=== PATIENT | female | born 2000 | race Hispanic/Latino ===

== ENCOUNTER 2025-06-28 21:31 | Emergency (ER) | payer OTHER, SELFPAY ==
[2025-06-28] MEDS ORDERED: Dexamethasone 10 MG/ML VIAL ONE (23:37)
== END 2025-06-28 23:41 | disposition home or self-care (01) ==
LOC: ERS 21:31
DX: B34.9 Viral infection, unspecified (principal); Z75.8 Other problems related to medical facilities and other health care
CPT/HCPCS: 71045; 87081; 87428; 87430; J1100